=== PATIENT | male | born 1965 | race Two or more races ===

== ENCOUNTER 2017-01-28 14:54 | Emergency (ER) | payer MEDICAID ==
[~2017-01-28] VITALS: Ht 175.3 cm; Wt 90.7 kg
[~2017-01-28 14:54] MED LIST: ATOR10TA PO; CYCL5TAB PO; DICL-176 PO; FENO160T8 PO; GABA-494 PO
[2017-01-28 15:15] VITALS: BP 116/78
[2017-01-28] MEDS ORDERED: METHOCARBAMOL 500 MG TAB PO ONE (16:15)
[2017-01-28] MEDS ORDERED: HYDROmorphone HCL 2 MG/ML VL IM ONE (16:15)
[2017-01-28] MEDS ORDERED: ONDANSETRON HCL 4 MG/2 ML VIAL IM ONE (16:15)
== END 2017-01-28 17:07 | disposition home or self-care (01) ==
LOC: ER 14:54
DX: M54.42 Lumbago with sciatica, left side (principal); M47.816 Spondylosis without myelopathy or radiculopathy, lumbar region; G89.29 Other chronic pain; Z79.899 Other long term (current) drug therapy; W01.0XXA Fall on same level from slipping, tripping and stumbling without subsequent striking against object, initial encounter; Y93.89 Activity, other specified; Y92.89 Other specified places as the place of occurrence of the external cause; Y99.8 Other external cause status
CPT/HCPCS: 72131; 96372; 99284; J1170; J2405